=== PATIENT | female | born 1980 | race Two or more races ===

== ENCOUNTER → 2019-11-26 12:44 | Outpatient (BNVA) | payer OTHER, SELFPAY | PROVIDERS: PCP Internal Medicine; Referring Provider Internal Medicine; Visit Provider Surgery | DX: Z48.815 Encounter for surgical aftercare following surgery on the digestive system (principal) | CPT/HCPCS: 99024; 99212 ==

== ENCOUNTER → 2021-05-03 09:18 | Outpatient (BNVA) | payer OTHER, SELFPAY | PROVIDERS: PCP Internal Medicine; Referring Provider Internal Medicine; Visit Provider Physician Assistant | DX: E66.01 Morbid (severe) obesity due to excess calories (principal); Z68.42 Body mass index [BMI] 45.0-49.9, adult; F43.10 Post-traumatic stress disorder, unspecified; F31.9 Bipolar disorder, unspecified; F41.9 Anxiety disorder, unspecified | CPT/HCPCS: 99202 ==

== ENCOUNTER → 2021-05-23 08:34 | Outpatient (BNVA) | payer OTHER, SELFPAY | PROVIDERS: PCP Internal Medicine; Referring Provider Internal Medicine; Visit Provider Physician Assistant | DX: E66.01 Morbid (severe) obesity due to excess calories (principal); Z68.41 Body mass index [BMI] 40.0-44.9, adult; F31.9 Bipolar disorder, unspecified; F17.210 Nicotine dependence, cigarettes, uncomplicated | CPT/HCPCS: 99212 ==

== ENCOUNTER → 2021-06-07 07:59 | Outpatient (BNVA) | payer OTHER, SELFPAY | PROVIDERS: PCP Internal Medicine; Visit Provider Dietitian, Registered | DX: E66.01 Morbid (severe) obesity due to excess calories (principal); Z68.41 Body mass index [BMI] 40.0-44.9, adult | CPT/HCPCS: 97802 ==

== ENCOUNTER → 2021-06-09 08:41 | Outpatient (BNVA) | payer OTHER, SELFPAY | PROVIDERS: PCP Internal Medicine; Visit Provider Counselor Mental Health | DX: F31.13 Bipolar disorder, current episode manic without psychotic features, severe (principal); F43.10 Post-traumatic stress disorder, unspecified; E66.01 Morbid (severe) obesity due to excess calories | CPT/HCPCS: 90791 ==

== ENCOUNTER 2023-04-23 11:31 | Outpatient (REF) | payer OTHER, SELFPAY ==
[2023-04-23 14:24] LABS: MANUAL DIFF FLAG NO
[2023-04-23 14:34] LABS: Basophils Absolute Auto 0.1 X10*3/uL (0.0-0.2); Basophils Percent Auto 0.5 % (0-2); Eosinophils Absolute Auto 0.2 X10*3/uL (0.0-0.4); Eosinophils Percent Auto 1.5 % (0-4); Hemoglobin 13.2 g/dl (12.0-16.0); Imm Gran Abs Auto 0.03 X10*3/uL (0.00-0.03); Imm Gran Pct Auto 0.3 % (0.0-0.4); Lymphocytes Absolute Auto 2.4 X10*3/uL (1.2-4.9); Lymphocytes Percent Auto 22.8 % (20-40); Mean Corpuscular HGB Conc 32.2 g/dl (31.0-35.0); Mean Corpuscular Hemoglobin 28.3 pg (27.0-33.0); Mean Platelet Volume 12.5 fL (9.4-12.3); Monocytes Absolute Auto 0.6 X10*3/uL (0.1-1.2); Monocytes Percent Auto 5.4 % (2-11); Neutrophils Absolute Auto 7.3 x10*3/uL (2.0-8.3); Neutrophils Percent Auto 69.5 % (45-73); Platelet Count 246 X10*3/uL (160-400); Red Blood Count 4.66 X10*6/uL (4.20-5.50); Red Cell Distribution Width 13.8 % (11.0-16.0); White Blood Count 10.5 X10*3/uL (4.8-10.8)
[2023-04-23 15:22] LABS: Alanine Aminotransferase 8 U/L (0-31); Albumin Level 3.9 g/dL (3.5-5.0); Alkaline Phosphatase 71 U/L (39-117); Anion Gap 10 (12-20); Aspartate Amino Transferase 14 U/L (5-31); Bilirubin Total 0.2 mg/dL (0.0-1.0); Blood Urea Nitrogen 9 mg/dL (9-16); Calcium 9.2 mg/dL (8.4-10.2); Carbon Dioxide 27 mmol/L (22-29); Chloride 107 mmol/L (96-108); Estimated Glomerular Filt Rate > 60; Glucose Random 97 mg/dL (60-115); Magnesium 1.9 mg/dL (1.6-2.6); Potassium 3.4 mmol/L (3.3-5.1); Sodium 141 mmol/L (135-145); Total Protein 6.9 g/dL (6.5-8.0)
[2023-04-23 15:40] LABS: TSH reflex Free T4 1.27 uIU/mL (0.32-4.0)
== END 2023-04-23 11:32 | disposition home or self-care (01) ==
LOC: HO.CHCLDS 11:31
PROVIDERS: Visit Provider Internal Medicine
DX: R00.2 Palpitations (principal)
CPT/HCPCS: 36415; 80053; 83735; 84443; 85025

== ENCOUNTER 2024-04-23 15:32 | Outpatient (REF) | payer OTHER, SELFPAY ==
[2024-04-23 17:55] LABS: Appearance Urine Cloudy; Color Urine Yellow; Glucose Urine UA Negative (Negative); Leukocyte Esterase Urine Moderate (2+) (Negative); Nitrite Urine Negative (Negative); UMIC TRIGGER UACC YES; Urine Blood Small (1+) (Negative); Urine Ketones Negative (Negative); Urine Protein Negative (Neg-Trace)
[2024-04-23 17:55] LABS: MANUAL DIFF FLAG NO
[2024-04-23 17:58] LABS: Bacteria Urine 1+ (None Seen); Hyaline Casts Urine 0-2 /LPF (0-2); UACC Culture Trigger YES; WBC Urine 21-50 /HPF (0-5)
[2024-04-23 18:20] LABS: Alanine Aminotransferase 11 U/L (0-31); Alkaline Phosphatase 87 U/L (39-117); Anion Gap 10 (12-20); Aspartate Amino Transferase 24 U/L (5-31); Bilirubin Total 0.3 mg/dL (0.0-1.0); Blood Urea Nitrogen 7 mg/dL (9-16); Calcium 9.1 mg/dL (8.4-10.2); Carbon Dioxide 28 mmol/L (22-29); Chloride 107 mmol/L (96-108); Cholesterol 140 mg/dL (<200); Estimated Glomerular Filt Rate > 60; Glucose Random 81 mg/dL (60-115); HDL Cholesterol 46 mg/dL (>40); LDL Cholesterol Calculated 75 mg/dL (<100); Potassium 3.8 mmol/L (3.3-5.1); Sodium 141 mmol/L (135-145); Total Protein 7.6 g/dL (6.5-8.0); Triglycerides 99 mg/dL (<150)
[2024-04-23 18:30] LABS: Basophils Percent Auto 0.3 % (0-2); Eosinophils Absolute Auto 0.1 X10*3/uL (0.0-0.4); Eosinophils Percent Auto 0.9 % (0-4); Imm Gran Abs Auto 0.04 X10*3/uL (0.00-0.03); Imm Gran Pct Auto 0.4 % (0.0-0.4); Lymphocytes Absolute Auto 1.7 X10*3/uL (1.2-4.9); Lymphocytes Percent Auto 17.8 % (20-40); Mean Corpuscular HGB Conc 31.6 g/dl (31.0-35.0); Mean Corpuscular Hemoglobin 26.9 pg (27.0-33.0); Mean Corpuscular Volume 85.2 fL (80.0-98.0); Mean Platelet Volume 11.8 fL (9.4-12.3); Monocytes Absolute Auto 0.8 X10*3/uL (0.1-1.2); Monocytes Percent Auto 8.2 % (2-11); Neutrophils Absolute Auto 6.8 x10*3/uL (2.0-8.3); Neutrophils Percent Auto 72.4 % (45-73); Platelet Count 299 X10*3/uL (160-400); Red Blood Count 4.46 X10*6/uL (4.20-5.50); Red Cell Distribution Width 14.4 % (11.0-16.0); White Blood Count 9.3 X10*3/uL (4.8-10.8)
[2024-04-23 18:38] LABS: TSH reflex Free T4 0.84 uIU/mL (0.32-4.0)
--- OUTSIDE RECORDS SUMMARY | 2024-04-23 18:47 | XMS_ITS | Encounter Summary ---
Author Organization [employer] Address [address] [place] [address] Care Team Providers Care Cooker Process Cheese Name Role Phone Nash Villarreal MD Primary Care Provider [phone]- [phone] Reason for Visit * Reason Onset Date Comments Med Refill 04/11/2024 Encounter Details Date Type Department Care Team (Late st Contact Info) Description 04/11/2024 Refill [facility] [address] [place] [address] Nash Villarreal MD [address] [place] [address] LRTI (lower respiratory tract infection) Social History Tobacco Use Types Packs/Day Years Used Date Smoking Tobacco: Every Day Cigarettes 0.3 18 Smokeless Tobacco: Never Depression Answer Date Recorded Patient Health Questionnaire-9 Score 6 06/22/2022 Housing Stability Answer Date Recorded What is your housing situation today? I have dhaval taylor 12/25/[address] you li ve. Do you have problems with any of the following? None of the above 12/25/2022 Food Insecurity Answer Date Recorded Within the past 12 months, y ou worried that your food would run out before you got money to buy more: Never True 12/25/2022 Within the past 12 months,th e food you bought just didn't last and you didn't have enough money to get more: Never True 07/2022 Transportation Answer Date Recorded In the past 12 months, has l ack of transportation kept you from medical appts, meetings, work or from getting things needed for daily living? I am not sure;No 12/25/2022 Utilities Answer Date Recorded In the past 12 months, has t he electric, gas, oil or water company threatened to shut off services in your home? No 12/25/2022 Depression Answer Date Recorded Patient Health Questionnaire-2 Score 6 06/22/2022 Comments No Sex and Gender Information Value Date Recorded Sex Assigned at Female 12/19/2021 10:21 AM EDT Legal Sex Female 10:21 AM EDT Gender Identity Non-Binary 07/24/2022 12:55 PM EDT Sexual Orientation Bisexual 07/24/2022 12 :55 PM EDT documented as of this encounter Miscellaneous Notes * Telephone Encounter - Rebeca Galvan - 04/11/2024 9:04 AM EST TC from pt requesting medication refill. Medications needing refill : albuterol 108 (90 Base) MCG/ACT inhaler To be sent to: [facility]/pharmacy #[id number] documented in this encounter Plan of Treatment Not on file documented as of this encounter Visit Diagnoses Diagnosis LRTI (lower respiratory tract infection) Other diseases of respiratory system, not elsewhere classified documented in this encounter Additional Health Concerns Assessment Noted Time PHQ-9 Depression Total Score: 6 06/23/19 23 1:21 PM EDT documented as of this encounter Care Teams Cooker Process Cheese Relationship Specialty Start Date End Date Nash Villarreal MD [address] [place] [phone] PCP - General Internal Medicine 12/26/18 documented as of this encounter
--- OUTSIDE RECORDS SUMMARY | 2024-04-23 18:47 | XMS_ITS | Encounter Summary ---
Author Organization [employer] Address [address] [facility] [address] [place] [address] Care Team Providers Care Engine Research Engineer Name Role Phone Nash Villarreal MD Primary Care Provider [phone]- [phone] Reason for Visit * Reason Comments Annual Exam Encounter Details Date Type Department Care Team (Latest Contact Info) Description 04/23/2024 2:45 PM EST Office Visit [facility] [address] [place], [place] [phone] Nash Villarreal MD [address] [place] [address] Annual physical exam (Primary Dx); Elevated glucose tolerance test; Other schizoaffective disorders (CMS/HCC); Severe obesity (CMS/HCC); Dietary counseling; Exercise counseling; Class 3 severe obesity due to excess calories with serious comorbidity and body mass index (BMI) of 45.0 to 49.9 in adult (CMS/HCC); Elevated BP without diagnosis of hypertension; Dysuria; Encounter for immunization Social History Tobacco Use Types Packs/Day Years Used Date Smoking Tobacco: Former Cigarettes 0.3 18 Smokeless Tobacco: Never Tobacco Cessation:Counseling Given: Not Answered Comments:Quit smoking 2 months. Used to smoke 5 cig a day x the last 15 years. Alcohol Answer Date Recorded Q1: How often do you have a drink containing alc ohol? 2 04/23/2024 Q2: How many drinks containi ng alcohol do you have on a typical day when you are drinking? 0 04/23/2024 Q3: How often do you have six or more drinks on one occasion? 2 04/23/2024 Depression Answer Date Recorded Patient Health Questionnaire-9 Score 5 04/23/2024 Patient Health Questionnaire-9 Score 5 04/23/2024 Last PHQ-9: Questionnaire Data Not on file 0 04/23/2024 Housing Stability Answer Date Recorded What is your housing situation today? I have dhaval taylor 04/23/[address] you li ve. Do you have problems with any of the following? None of the above 04/23/2024 Food Insecurity Answer Date Recorded Within the past 12 months, y ou worried that your food would run out before you got money to buy more: Never True 04/23/2024 Within the past 12 months,th e food you bought just didn't last and you didn't have enough money to get more: Never True 06/2024 Transportation Answer Date Recorded In the past 12 months, has l ack of transportation kept you from medical appts, meetings, work or from getting things needed for daily living? No 04/23/2024 Utilities Answer Date Recorded In the past 12 months, has t he electric, gas, oil or water company threatened to shut off services in your home? No 04/23/2024 Depression Answer Date Recorded Patient Health Questionnaire-2 Score 1 04/23/2024 Internet Access Answer Date Recorded Internet Access Q1 Yes 04/23/2024 Internet Access Q2 Not on file 04/23/2024 Comments No Sex and Gender Information Value Date Recorded Sex Assigned at Female 12/19/2021 10:21 AM EDT Legal Sex Female 10:21 AM EDT Gender Identity Non-Binary 07/24/2022 12:55 PM EDT Sexual Orientation Bisexual 07/24/2022 12 :55 PM EDT documented as of this encounter Last Filed Vital Signs Vital Sign Reading Time Taken Comments Blood Pressure 148/84 04/23/2024 3:00 PM EST Pulse 83 04/23/2024 3:00 PM EST Temperature 36.6 ??C (97.9 ??F) 04/23/2024 3:00 PM ES T Respiratory Rate 20 04/23/2024 3:00 PM EST Oxygen Saturation 98% 04/23/2024 3:00 PM EST Inhaled Oxygen Concentration - - Weight 135 kg (298 lb) 04/23/2024 3:00 PM EST Height 171 cm (5' 7.32 ) 04/23/2024 3:00 PM EST Body Mass Index 46.23 04/23/2024 3:00 PM EST documented in this encounter Progress Notes * Nash Villarreal MD - 04/23/2024 2:45 PM EST Subjective Patient ID: Trinity Ramirez is a 44 y.o. adult who presents for Annual Exam. HPI Was in the psych unit x 21 days. Pt was having visual hallucination. Now feels better. Was skippingher meds before. Feels overall well. Feels happier than she has ever been before. Pt is c/o burning sensation w/ urination today x the last 1 to 2 months. Has been drinking more coffee than usual since her stay at the [facility]. Now drinking up to 32 oz a day. Patient Active Problem List Diagnosis Bipolar disorder (CMS/HCC) Cauda equina compression (CMS/HCC) Elevated glucose tolerance test History of cholecystectomy Schizoaffective disorder (CMS/HCC) Severe obesity (CMS/HCC) Major depressive disorder PTSD (post-traumatic stress disorder) Mixed anxiety and depressive disorder Internal and external hemorrhoids without complication Current Outpatient Medications on File Prior to Visit Medication Sig Dispense Refill albuterol 108 (90 Base) MCG/ACT inhaler Inhale 2 puffs every 6 (six) hours if needed for wheezing. 18 g 1 benztropine (Cogentin) 1 MG tablet Take 1 mg by mouth 2 times daily. clindamycin (Cleocin) 300 MG capsule TAKE ONE CAPSULE EVERY 12 HOURS UNTIL FINISHED docusate sodium (Colace) 100 MG capsule Take 1 capsule (100 mg) by mouth 2 times daily. 180 capsule3 doxycycline (Vibra-Tabs) 100 MG tablet TAKE 1 TABLET (ORAL) 2 TIMES PER DAY FOR 7 DAYS LIMITS ON EXPOSURE WHILE ON THIS ANTIBIOTIC fluticasone (Flonase) 50 MCG/ACT nasal spray INSTILL 1-2 SPRAYS INTO NOSTRILS EVERY DAY IN THE MORNING NEEDED 48 mL 1 gabapentin (Neurontin) 100 MG capsule TAKE 1 CAPSULE BY MOUTH TWICE A DAY 60 capsule 1 hydrocortisone (Anusol-HC) 2.5 % rectal cream Insert into the rectum 2 times daily. 28 g 0 nitroglycerin (Rectiv) 0.4 % (w/w) rectal ointment Insert cream around and within rectum every 12 hours x 7 days 30 g 0 OXcarbazepine (Trileptal) 150 MG tablet OXcarbazepine (Trileptal) 300 MG tablet TAKE 2 TABLETS BY MOUTH EVERY MORNING AND 1&1/2 TABLETSEVERY EVENING DIRECTED oxyCODONE-acetaminophen (Percocet) 10-325 MG tablet TAKE 1 TABLET EVERY 6 TO 8 HOURS NEEDED FOR PAIN predniSONE (Deltasone) 20 MG tablet Take 40 mg by mouth Once per day. risperiDONE (RisperDAL) 1 MG tablet Take 1 tablet by mouth every 12 (twelve) hours. risperiDONE (RisperDAL) 1 MG tablet TAKE 1 TABLET BY MOUTH IN THE MORNING, 1 TABLET IN THE EVENING,AND 1/2 TABLET DAILY AT 3PM risperiDONE (RisperDAL) 3 MG tablet TAKE 1/2 TABLET BY MOUTH TWICE A DAY No current facility-administered medications on file prior to visit. Review of Systems Constitutional: Negative for activity change, appetite change, chills and diaphoresis. HENT: Negative for dental problem, drooling and ear discharge. Eyes: Negative for pain and itching. Respiratory: Negative for cough, choking and chest tightness. Cardiovascular: Negative for palpitations and leg swelling. Gastrointestinal: Negative for abdominal pain, anal bleeding and blood in stool. Endocrine: Negative for cold intolerance and heat intolerance. Genitourinary: Negative for flank pain, frequency and genital sores. Musculoskeletal: Negative for back pain. Neurological: Negative for light-headedness, numbness and headaches. Psychiatric/Behavioral: Negative for agitation, confusion and decreased concentration. Objective BP (!) 148/84 (BP Location: Left arm, Patient Position: Sitting, BP Cuff Size: Adult long) Pulse 83 Temp 97.9 ??F (36.6 ??C) (Oral) Resp 20 Ht 5' 7.32 (1.71 m) Wt 298 lb (135 kg) SpO2 98% BMI 46.23 kg/m?? Physical Exam Constitutional: General: Trinity is not in acute distress. Appearance: Normal appearance. Trinity is not ill-appearing, toxic-appearing or diaphoretic. HENT: Head: Normocephalic. Right Ear: Tympanic membrane normal. There is no impacted cerumen. Left Ear: Tympanic membrane normal. There is no impacted cerumen. Nose: Nose normal. No congestion or rhinorrhea. Mouth/Throat: Mouth: Mucous membranes are moist. Eyes: General: No scleral icterus. Right eye: No discharge. Left eye: No discharge. Pupils: Pupils are equal, round, and reactive to light. Cardiovascular: Rate and Rhythm: Normal rate and regular rhythm. Heart sounds: No murmur heard. No friction rub. No gallop. Pulmonary: Effort: Pulmonary effort is normal. No respiratory distress. Breath sounds: No stridor. No wheezing, rhonchi or rales. Chest: Chest wall: No tenderness. Abdominal: General: There is no distension. Palpations: Abdomen is soft. There is no mass. Tenderness: There is no abdominal tenderness. There is no right CVA tenderness or left CVA tenderness. Musculoskeletal: General: Normal range of motion. Cervical back: Normal range of motion. Neurological: General: No focal deficit present. Mental Status: Trinity is alert and oriented to person, place, and time. Psychiatric: Mood and Affect: Mood normal. Assessment/Plan Diagnoses and all orders for this visit: Annual physical exam Comments: Normal cardiopulmonary exam Patient advised to maintain a healthy and balanced diet Orders: - CBC auto differential; Future - Comprehensive Metabolic Panel; Future - Lipid Panel, Standard; Future - TSH W/Reflex to FT4; Future Elevated glucose tolerance test Comments: Low-carb diet recommended Orders: - CBC auto differential; Future - Comprehensive Metabolic Panel; Future - Lipid Panel, Standard; Future - TSH W/Reflex to FT4; Future Other schizoaffective disorders ([facility]) Comments: Continue with psychiatry care Compliance to medication reinforced. Orders: - CBC auto differential; Future - Comprehensive Metabolic Panel; Future - Lipid Panel, Standard; Future - TSH W/Reflex to FT4; Future Severe obesity ([facility]) Dietary counseling Exercise counseling Class 3 severe obesity due to excess calories with serious comorbidity and body mass index (BMI) of45.0 to 49.9 in adult ([facility]) Dietary Recommendations: Fruits, vegetables, whole grains, protein foods, and fat-free or low-fat dairy products are healthychoices. Eat different types of protein foods in your diet. This can include seafood, lean meats, poultry, beans, peas, lentils, nuts, seeds, soy products, and eggs. Limit foods and beverages higher in added sugars, saturated fat, and sodium. Exercise Recommendations: At least 150 minutes of moderate-intensity physical activity per week, or an equivalent combinationof moderate- and vigorous-intensity activity Elevated BP without diagnosis of hypertension Comments: Patient reports that her BP at home is at goal Feels that she has whitecoat hypertension Dysuria Comments: Urinalysis reviewed. Presence of blood and white blood cells in the urine Advised to increase fluid intake. Macrobid ordered. Orders: - nitrofurantoin, macrocrystal-monohydrate, (Macrobid) 100 MG capsule; Take 1 capsule (100 mg) by mouth 2 times daily for 7 days. - Urinalysis, Complete, with Reflex to Culture; Future - POCT Urinalysis Encounter for immunization - HEPATITIS B VACCINE ADULT 20 yrs + documented in this encounter Plan of Treatment Not on file documented as of this encounter Procedures Procedure Name Priority Date/Time Associated Diagnosis Comments POCT URINALYSIS DIPSTICK Routine 04/23/2024 3:50 PM EST Dysuria CBC WITH AUTO DIFFERENTIAL Routine 04/23/2024 3:33 PM EST Annual physical exam Elevated glucose tolerance test Other schizoaffective disorders (CMS/HCC) URINALYSIS, COMPLETE, WITH REFLEX TO CULTURE Routine 04/23/2024 3:20 PM EST Dysuria TSH W/REFLEX TO FT4 Routine 04/23/2024 2 :47 PM EST Annual physical exam Elevated glucose tolerance test Other schizoaffective disorders (CMS/HCC) LIPID PANEL, STANDARD Routine 04/23/2024 2:47 PM EST Annual physical exam Elevated glucose tolerance test Other schizoaffective disorders (CMS/HCC) COMPREHENSIVE METABOLIC PANEL Routine 04/23/2024 2:47 PM EST Annual physical exam Elevated glucose tolerance test Other schizoaffective disorders (CMS/HCC) documented in this encounter Results * (ABNORMAL) POCT Urinalysis (04/23/2024 3:50 PM EST) Color, UA Yellow Clarity, UA Clear Glucose, UA Negative Bilirubin, UA Negative Ketones, UA Negative Spec Grav, UA 1.015 Blood, UA Positive(A) Negative, None Detected Comment:moderate pH, UA 7.0 Protein, UA Negative Urobilinogen, UA 0.2 Leukocytes, UA Few 15(A) Negative, Rare, Trace Comment:small Nitrite, UA Negative Negative, None Detected Appearance, UA clear QC Media Lot # [id number] Lot# Expiration Date Urine 04/23/2024 3:50 PM EST Nash Villarreal MD POINT OF CARE TEST ENTER/ED IT ORDERABLES Final Result * (ABNORMAL) CBC auto differential (04/23/2024 3:33 PM EST) White Blood Count 9.3 4.8 - 10.8 X10*3/uL [facility] Red Blood Count 4.46 4.20 - 5.50 X10*6/uL [facility] Hemoglobin 12.0 12.0 - 16.0 g/dl [facility] Hematocrit 38.0 37.0 - 47.0 % [facility] Mean Corpuscular Volume 85.2 80.0 - 98.0 fL [facility] Mean Corpuscular Hemoglobin 26.9(L) 27.0 - 33.0 pg [facility] Mean Corpuscular HGB Conc 31.6 31.0 - 35.0 g/dl [facility] Red Cell Distribution Width 14.4 11.0 - 16.0 % [facility] Platelet Count 299 160 - 400 X10*3/uL [facility] Mean Platelet Volume 11.8 9.4 - 12.3 fL [facility] Neutrophils Percent Auto 72.4 45 - 73 % [facility] Imm Gran Pct Auto 0.4 0.0 - 0.4 % [facility] Lymphocytes Percent Auto 17.8(L) 20 - 40 % [facility] Monocytes Percent Auto 8.2 2 - 11 % [facility] Eosinophils Percent Auto 0.9 0 - 4 % [facility] Basophils Percent Auto 0.3 0 - 2 % [facility] NRBC Pct Auto 0.0 0.0 - 0.2 /100WBC [facility] Neutrophils Absolute Auto 6.8 2.0 - 8.3 x10*3/uL [facility] Imm Gran Abs Auto 0.04(H) 0.00 - 0.03 X10*3/uL [facility] Lymphocytes Absolute Auto 1.7 1.2 - 4.9 X10*3/uL [facility] Monocytes Absolute Auto 0.8 0.1 - 1.2 X10*3/uL [facility] Eosinophils Absolute Auto 0.1 0.0 - 0.4 X10*3/uL [facility] Basophils Absolute Auto 0.0 0.0 - 0.2 X10*3/uL [facility] NRBC Abs Auto 0.000 0.0 - 0.012 X10*3/uL [facility] Blood Venous blood specimen / Unknown 04/23/2024 3:33 PM EST 04/23/2024 5:53 PM EST us Nash Villarreal MD LAB BLOOD ORDERABLES Final Result [facility] [address] [place] [phone] * (ABNORMAL) Urinalysis, Complete, with Reflex to Culture (04/23/2024 3:20 PM EST) Color Urine Yellow [facility] Appearance Urine Cloudy [facility] PH 7.0 5.0 - 9.0 [facility] Glucose Urine UA Negative Negative mg/dL [facility] Urine Blood Small (1+)(A) Negative [facility] Specific [place] - Urine 1.010 1.005 - 1.025 [facility] Urine Protein Negative Neg-Trace mg/dL [facility] Urine Ketones Negative Negative mg/dL [facility] Nitrite Urine Negative Negative [facility] Leukocyte Esterase Urine Moderate (2+)(A) Negative [facility] RBC Urine 11-20(A) 0 - 2 /HPF [facility] Urine WBC 21-50(A) 0 - 5 /HPF [facility] Urine Squamous Epithelial Cell 11-20 0 - 2 /HPF [facility] Urine Bacteria 1+ None Seen [facility] Hyaline Casts, Urine 0-2 0 - 2 /LPF [facility] Urine 04/23/2024 3:2 0 PM EST 04/23/2024 5:49 PM EST Narrative [facility] - 04/23/2024 5:59 PM EST [id number], Clean Catch us Nash Villarreal MD LAB URINE ORDERABLES Final Result Performing Organization Address City/[facility]/ZIP Co de Phone Number [facility] [address] [place] [phone] * TSH W/Reflex to FT4 (04/23/2024 2:47 PM EST) TSH reflex Free T4 0.84 0.32 - 4.0 uIU/mL [facility] Blood Venous blood specimen / Unknown 04/23/2024 2:47 PM EST 04/23/2024 5:53 PM EST us Nash Villarreal MD LAB BLOOD ORDERABLES Final Result Performing Organization Address City/[facility]/ZIP Co de Phone Number [facility] [address] [place] [phone] * Lipid Panel, Standard (04/23/2024 2:47 PM EST) Triglycerides 99 <150 mg/dL [facility] Comment:Desirable Triglyceri de: less than 150 mg/dLBorderline High Triglyceride 150-199 mg/dLHigh Triglyceride: 200-499 mg/dLVery High Triglyceride: greater than or equal to 5OO mg/dL Cholesterol 140 <200 mg/dL [facility] Comment:Desirable Cholestero l: less than 200 mg/dLBorderline High Cholesterol: 200-239 mg/dLHigh Cholesterol: greater than 239 mg/dL LDL Cholesterol Calculated 75 <100 mg/dL [facility] Comment:Desirable LDL: less than 100 mg/dLNear Optimal/Above Optimal LDL: 110- 129 mg/dLBorderline High LDL: 130-159 mg/dLHigh LDL: 160-189 mg/dLVery High LDL: greater than or equal to 190 mg/dL HDL Cholesterol 46 >40 mg/dL [facility] Comment:Desirable HDL: great er than 40 mg/dL Note: This HDL assay may give artificially low results in patients with liver disease. Blood Venous blood specimen / Unknown 04/23/2024 2:47 PM EST 04/23/2024 5:53 PM EST us Nash Villarreal MD LAB BLOOD ORDERABLES Final Result [facility] [address] [place] [phone] * (ABNORMAL) Comprehensive Metabolic Panel (04/23/2024 2:47 PM EST) Sodium 141 135 - 145 mmol/L [facility] Potassium 3.8 3.3 - 5.1 mmol/L [facility] Chloride 107 96 - 108 mmol/L [facility] Carbon Dioxide 28 22 - 29 mmol/L [facility] Anion Gap 10(L) 12 - 20 [facility] Urea Nitrogen (BUN) 7(L) 9 - 16 mg/dL [facility] Creatinine, Serum 0.70 0.5 - 1.4 mg/dL [facility] Estimated Glomerular Filt Rate >60 [facility] Comment:Chronic Kidney Disea se: Estimated GFR < 60 mL/min/1.51b2[place] Kidney Disease: Estimated GFR < 15 mL/min/1.73m2 Glucose 81 60 - 115 mg/dL [facility] Calcium 9.1 8.4 - 10.2 mg/dL [facility] Bilirubin, Total 0.3 0.0 - 1.0 mg/dL [facility] Aspartate Amino Transferase 24 5 - 31 U/L [facility] Alanine Aminotransferase 11 0 - 31 U/L [facility] Total Protein 7.6 6.5 - 8.0 g/dL [facility] Albumin Level 4.0 3.5 - 5.0 g/dL [facility] Alkaline Phosphatase 87 39 - 117 U/L [facility] Blood Venous blood specimen / Unknown 04/23/2024 2:47 PM EST 04/23/2024 5:53 PM EST us Nash Villarreal MD LAB BLOOD ORDERABLES Final Result [facility] [address] [place] [phone] documented in this encounter Visit Diagnoses Diagnosis Annual physical exam- Primary Routine general medical examination at a health care facility Elevated glucose tolerance test Impaired glucose tolerance test Other schizoaffective disorders (CMS/HCC) Severe obesity ([facility]) Morbid obesity Dietary counseling Dietary surveillance and counseling Exercise counseling Class 3 severe obesity due to excess calories with serious comorbidity and body mass index (BMI) of 45.0 to 49.9 in adult (CMS/HCC) Elevated BP without diagnosis of hypertension Dysuria Encounter for immunization documented in this encounter Additional Health Concerns Assessment Noted Time PHQ-9 Depression Total Score: 5 04/24/19 25 3:29 PM EST documented as of this encounter Care Teams Engine Research Engineer Relationship Specialty Start Date End Date Nash Villarreal MD [address] [place] [phone] PCP - General Internal Medicine 12/26/18 documented as of this encounter
--- OUTSIDE RECORDS SUMMARY | 2024-04-23 18:47 | XMS_ITS | Encounter Summary ---
Author Organization [employer] Address [address] [facility] 7t [place] [address] Care Team Providers Care Embedded Systems Engineer Name Role Phone Nash Villarreal MD Primary Care Provider [phone]- [phone] Reason for Visit * Reason Onset Date Comments Mammogram Order 12/13/2023 Encounter Details Date Type Department Care Team ([facility] st Contact Info) Description 12/13/2023 Telephone [facility] [address] [place] [address] Nash Villarreal MD [address] [place], [place] [phone] Mammogram Order Social History Tobacco Use Types Packs/Day Years [...] encounter Miscellaneous Notes * Telephone Encounter - Nguyễn Flores - 12/13/2023 10:50 AM EDT Tc from pt requesting mammogram order. Pt stated she was supposed to have one last year but wasn't charles to get it done. If any questions you can contact pt at [phone]. documented in this encounter Plan of Treatment Not on file documented as of this encounter Visit Diagnoses Not on filedocumented in this encounter Additional Health Concerns Assessment Noted Time PHQ-9 Depression Total Score: 6 06/23/19 23 1:21 PM EDT documented as of this encounter Care Teams Embedded Systems Engineer Relationship Specialty Start Date End Date Nash Villarreal MD [address] [place] [address] PCP - General Internal Medicine 12/26/18 documented as of this encounter
--- OUTSIDE RECORDS SUMMARY | 2024-04-23 18:47 | XMS_ITS | Encounter Summary ---
Author Organization [employer] Address [address] [facility] 7t [place] [address] Care Team Providers Care Exec. Creative Director Name Role Phone Nash Villarreal MD Primary Care Provider [phone]- [phone] Reason for Visit * Reason Comments Pre-visit Planning SDOH unable to reach LVM Encounter Details Date Type Department Care Team ([facility] st Contact Info) Description 04/16/2024 Patient Outreach [facility] PEDS [address] [place], [place] [phone] Nash Villarreal MD [address] [place] [address] Pre-visit Planning (SDOH unable to reach LVM) Social History Tobacco Use Types Packs/Day Years [...] PM EDT documented as of this encounter Progress Notes * Tasia Mora - 04/16/2024 4:51 PM EST HANK Garcia placed outbound call to patient to complete pre-visit planning. No answer at this time. Patient name and were not confirmed. CC left voicemail requesting return call. Direct contactinformation provided. documented in this encounter Plan of Treatment Not on file documented as of this encounter Visit Diagnoses Not on filedocumented in this encounter Additional Health Concerns Assessment Noted Time PHQ-9 Depression Total Score: 6 06/23/19 23 1:21 PM EDT documented as of this encounter Care Teams Exec. Creative Director Relationship Specialty Start Date End Date Nash Villarreal MD [address] [place] [id number] PCP - General Internal Medicine 12/26/18 documented as of this encounter
--- OUTSIDE RECORDS SUMMARY | 2024-04-23 18:47 | XMS_ITS | Encounter Summary ---
Author Organization [employer] Address [address] [facility] [address] [place] [address] Care Team Providers Care Typing Bookkeeper Name Role Phone Nash Villarreal MD Primary Care Provider [phone] [phone] Encounter Details Date Type Department Care Team (Latest Contact Info) Description 04/23/2024 Travel Social History Tobacco Use Types Packs/Day Years Used Date Smoking Tobacco: Former Cigarettes 0.3 18 Smokeless Tobacco: Never Comments:Quit smoking 2 travis hs. Used to smoke 5 cig a day [...] PM EDT documented as of this encounter Plan of Treatment Not on file documented as of this encounter Visit Diagnoses Not on filedocumented in this encounter Additional Health Concerns Assessment Noted Time PHQ-9 Depression Total Score: 5 04/24/19 25 3:29 PM EST documented as of this encounter Care Teams Typing Bookkeeper Relationship Specialty Start Date End Date Nash Villarreal MD [address] [place] [address] PCP - General Internal Medicine 12/26/18 documented as of this encounter
--- OUTSIDE RECORDS SUMMARY | 2024-04-23 18:47 | XMS_ITS | Encounter Summary ---
Author Organization [employer] Address [address] [facility] [address] [place] [address] Care Team Providers Care Wedding Planning Internship Name Role Phone Nash Villarreal MD Primary Care Provider [phone]- [phone] Reason for Visit * Reason Onset Date Comments Appointment Request 03/21/2023 Encounter Details Date Type Department Care Team ([facility] st Contact Info) Description 03/21/[address] [facility] [address] [place] [address] Nash Villarreal MD [address] [place] [address] Appointment Request Social History Tobacco Use Types Packs/Day Years [...] encounter Miscellaneous Notes * Telephone Encounter - Linda March RN - 03/21/2023 11:50 AM EST Please review message below and advise if order for EKG can be placed as psych is requesting. * Telephone Encounter - Wei Smith - 03/21/2023 11:43 AM EST Tc from patient requesting a appt to get a EKG exam states was advised by phychiatric to get exam done due to the medication the patient is taking. documented in this encounter Plan of Treatment Not on file documented as of this encounter Visit Diagnoses Not on filedocumented in this encounter Additional Health Concerns Assessment Noted Time PHQ-9 Depression Total Score: 6 06/23/19 23 1:21 PM EDT documented as of this encounter Care Teams Wedding Planning Internship Relationship Specialty Start Date End Date Nash Villarreal MD [address] [place] [address] PCP - General Internal Medicine 12/26/18 documented as of this encounter
--- OUTSIDE RECORDS SUMMARY | 2024-04-23 18:47 | XMS_ITS | Encounter Summary ---
Author Organization [employer] Address [address] [facility] 7t [place] [address] Care Team Providers Care Riding Teacher Name Role Phone Nash Villarreal MD Primary Care Provider [phone] [phone] Encounter Details Date Type Department Care Team ([facility] st Contact Info) Description 02/01/2024 Orders Only [facility] PEDS [address] [place], [place] [phone] Nash Villarreal MD [address] [place] [address] Acute left flank pain (Primary Dx) Social History Tobacco Use Types Packs/Day Years [...] as of this encounter Plan of Treatment Scheduled Orders Name Type Priority Associated Diagnoses Orde r Schedule Urinalysis, Complete, with Reflex to Culture Lab Routine Acute left flank pain Expected: 02/01/2024 (Approximate), Expires: 01/31/2025 documented as of this encounter Visit Diagnoses Diagnosis Acute left flank pain- Primary documented in this encounter Additional Health Concerns Assessment Noted Time PHQ-9 Depression Total Score: 6 06/23/19 23 1:21 PM EDT documented as of this encounter Care Teams Riding Teacher Relationship Specialty Start Date End Date Nash Villarreal MD [address] [place] [id number] PCP - General Internal Medicine 12/26/18 documented as of this encounter
--- OUTSIDE RECORDS SUMMARY | 2024-04-23 18:47 | XMS_ITS | Encounter Summary ---
Author Organization [employer] Address [address] [facility] [address] [place] [address] Care Team Providers Care Parasitologist Name Role Phone Nash Villarreal MD Primary Care Provider [phone]- [phone] Reason for Referral * Imaging (Routine) - Closed Specialty Diagnoses / Procedures Referred By Ria murphy Referred To Contact Radiology Diagnoses Encounter for screening mammogram for malignant neoplasm of breast Procedures BI Mammogram Screening Tomosynthesis Bilateral Nash Villarreal MD [address] [place] [address] Phone: tel: fax: [address] Phone: tel: fax: Referral ID Status Reason Start Date Expiration Date Visits Re quested Visits Authorized [id number] Closed 12/13/2023 12/12/2024 1 1 Encounter Details Date Type Department Care Team (Late st Contact Info) Description 12/13/2023 Orders Only [facility] CH[facility] MED & PEDS [address] [place] [address] Nash Villarreal MD [address] [place] [address] Encounter for screening mammogram for malignant neoplasm of breast (Primary Dx) Social History Tobacco Use Types [...] Procedure Name Priority Date/Time Associated Diagnosis Comments BI MAMMOGRAM SCREENING TOMOSYNTHESIS BILATERAL Routine 01/24/2024 Encounter for screening mammogram for malignant neoplasm of breast documented in this encounter Results * BI Mammogram Screening Tomosynthesis Bilateral (01/24/2024) Anatomical Region Laterality Modality Breast Bilateral Mammography us Nash Villarreal MD IMG BI PROCEDURES Final Res ult documented in this encounter Visit Diagnoses Diagnosis Encounter for screening mammogram for malignant neoplasm of breast- Primary documented in this encounter Additional Health Concerns Assessment Noted Time PHQ-9 Depression Total Score: 6 06/23/19 23 1:21 PM EDT documented as of this encounter Care Teams Parasitologist Relationship Specialty Start Date End Date Nash Villarreal MD [address] [place] [address] PCP - General Internal Medicine 12/26/18 documented as of this encounter
--- OUTSIDE RECORDS SUMMARY | 2024-04-23 18:47 | XMS_ITS | Clinical Summary ---
Author Organization [employer] Address [address] [facility] [address] [place] [address] Care Team Providers Care Hot Shot Name Role Phone Nash Villarreal MD Primary Care Provider [phone] Allergies Active Allergy Reactions Criticality Noted Date Comments Cat Dander 08/29/2022 Tiller Extract High 09/22/2011 Other reaction(s): rash, hives Tramadol 05/08/2022 Medications * This document contains information received from the source organization and may not represent a complete record from that organization. gabapentin (Neurontin) 100 MG capsule TAKE 1 CAPSULE BY MOUTH TWICE A DAY 60 capsule 1 06/03/19 23 Active benztropine (Cogentin) 1 MG tablet Take 1 mg by mouth 2 times daily. 10/17/19 22 Active risperiDONE (RisperDAL) 1 MG tablet Take 1 tablet by mouth every 12 (twelve) hours. 11/02/19 22 Active risperiDONE (RisperDAL) 1 MG tablet TAKE 1 TABLET BY MOUTH IN THE MORNING, 1 TABLET IN THE EVENING, AND 1/2 TABLET DAILY AT 3PM 04/29/19 23 Active OXcarbazepine (Trileptal) 150 MG tablet 07/31/19 23 Active fluticasone (Flonase) 50 MCG/ACT nasal sprayIndicatio ns:Post-nasal drip INSTILL 1-2 SPRAYS INTO NOSTRILS EVERY DAY IN THE MORNING NEEDED 48 mL 1 09/15/19 23 Active clindamycin (Cleocin) 300 MG capsule TAKE ONE CAPSULE EVERY 12 HOURS UNTIL FINISHED 05/14/19 24 Active doxycycline (Vibra-Tabs) 100 MG tablet TAKE 1 TABLET (ORAL) 2 TIMES PER DAY FOR 7 DAYS LIMITS ON EXPOSURE WHILE ON THIS ANTIBIOTIC 01/30/20 23 Active oxyCODONE-acet aminophen (Percocet) 10-325 MG tablet TAKE 1 TABLET EVERY 6 TO 8 HOURS NEEDED FOR PAIN 05/14/19 24 Active predniSONE (Deltasone) 20 MG tablet Take 40 mg by mouth Once per day. 01/30/20 23 Active OXcarbazepine (Trileptal) 300 MG tablet TAKE 2 TABLETS BY MOUTH EVERY MORNING AND 1&1/2 TABLETS EVERY EVENING DIRECTED 04/25/19 24 Active risperiDONE (RisperDAL) 3 MG tablet TAKE 1/2 TABLET BY MOUTH TWICE A DAY 04/25/19 24 Active nitroglycerin (Rectiv) 0.4 % (w/w) rectal ointment Insert cream around and within rectum every 12 hours x 7 days 30 g 11/02/19 24 Active docusate sodium (Colace) 100 MG capsule Take 1 capsule (100 mg) by mouth 2 times daily. 180 capsule 3 11/02/19 24 Active hydrocortisone (Anusol-HC) 2.5 % rectal creamIndicatio ns:External hemorrhoids Insert into the rectum 2 times daily. 28 g 11/27/19 24 Active albuterol 108 (90 Base) MCG/ACT inhalerIndicat ions:LRTI (lower respiratory tract infection) Inhale 2 puffs every 6 (six) hours if needed for wheezing. 18 g 1 04/11/19 25 025 Active nitrofurantoin , macrocrystal-m onohydrate, (Macrobid) 100 MG capsuleIndicat ions:Dysuria Take 1 capsule (100 mg) by mouth 2 times daily for 7 days. 14 capsule 04/24/19 25 025 Active albuterol 108 (90 Base) MCG/ACT inhalerIndicat ions:LRTI (lower respiratory tract infection) Inhale 2 puffs every 6 (six) hours if needed for wheezing. 18 g 1 05/09/19 23 025 Discontinued(Re order (will not trigger notification to Pharmacy)) bisacodyl (Dulcolax) 5 MG EC tabletIndicati ons:External hemorrhoids Take 1 tablet (5 mg) by mouth if needed each day for constipation. Do not crush, chew, or split. 30 tablet 3 11/27/19 24 025 Active Problems Problem Noted Date Diagnosed Date Internal and external hemorrhoids without compli cation 11/04/2023 Assessment & Plan (11/04/2023 4:03 PM EDT): Continue soaks, use of squatty potty and drinking lots of water. Use Nifedipine at 6 oclock for potential fissure, Prep H around rectum, wipe with witch Marlena pads, and use internal Anusol (hydrocortisone suppositories). If not improved in 1-2 weeks, return to clinic, return for any fever, increased pain, or large quantity bleeding. PTSD (post-traumatic stress disorder) 11/01/2023 Mixed anxiety and depressive disorder 11/01/2023 Major depressive disorder 08/08/2022 Cauda equina compression 06/22/2022 Elevated glucose tolerance test 06/22/2022 History of cholecystectomy 06/22/2022 Schizoaffective disorder 06/22/2022 Severe obesity 06/22/2022 Bipolar disorder 09/21/2009 Resolved Problems Problem Noted Date Diagnosed Date Resolved Date Crohn's disease 08/08/2022 11/02/2023 Gestational diabetes mellitu s in , diet controlled 08/08/2022 08/08/2022 Encounters * This document contains information received from the source organization and may not represent a complete record from that organization. Date Type Department Care Team Description 04/23/2024 2:45 PM EST Office Visit [facility] [address] [place] [address] Nash Villarreal MD Annual physical exam (Primary Dx); Elevated glucose tolerance test; Other schizoaffective disorders (CMS/HCC); Severe obesity (CMS/HCC); Dietary counseling; Exercise counseling; Class 3 severe obesity due to excess calories with serious comorbidity and body mass index (BMI) of 45.0 to 49.9 in adult (CMS/HCC); Elevated BP without diagnosis of hypertension; Dysuria; Encounter for immunization 04/23/2024 Travel 04/16/2024 Patient Outreach [facility] [address] [place] [address] Nash Villarreal MD Pre-visit Planning ([facility] unable to reach LVM) 04/11/2024 Refill [facility] [address] [place] [address] Nash Villarreal MD LRTI (lower respiratory tract infection) 02/01/2024 Orders Only [facility] [address] [place] [address] Nash Villarreal MD Acute left flank pain (Primary Dx) 01/28/2024 Telephone [facility] [address] [place], [place] [phone] Flor Thomson MD ER Follow-up (ED fu abd pain/pyelonephritis? ) from Last 3 Months Immunizations Name Administration Dates Next Due Hep B, adult 04/23/2024,04/10/2019,03/13/2019 Influenza Injectable Quadriv alant Preservative Free IIV4 MDCK 11/22/2017,11/06/2016 Influenza injectable quadriv alent IIV4 with preservative 04/10/2019,01/04/2015 Influenza injectable quadriv alent preservative free 12/30/2015 Influenza, High Dose Seasona l, Preservative Free 11/06/2016 Pneumococcal Polysaccharide PPSV23 04/26/2007 TD (adult), 2 Lf tetanus tox oid, preservative free, adsorbed 04/26/2007,05/29/2006 Tdap 02/25/2018 Family History Medical History Relation Name Comments Breast cancer Father's Sister Breast cancer Maternal Cousin diagnosed a t 19, still living Cervical cancer Mother Breast cancer Mother's Sister No Known Problems Paternal Grandmother Relation Name Status Comments Father's Sister Maternal Cousin Other Mother Mother's Sister Paternal Grandmother Social History Tobacco Use Types Packs/Day Years [...] Orientation Bisexual 07/24/2022 12 :55 PM EDT Last Filed Vital Signs Vital Sign Reading [...] Mass Index 46.23 04/23/2024 3:00 PM EST Plan of Treatment Health Maintenance Due Date Last Done Comments HIV Screening 1982 Family Planning (PISQ) 1997 Hepatitis C Screening 2000 Hepatitis A Vaccines (1 of 2 - Risk 2-dose series) 2001 COVID-19 Vaccine (2 - season) 2023 07/22/2020 Influenza Vaccine (#1) 2024 , 11/22/2017, 11/06/2016, Additional history exists Postponed from 10/21/2023 (Patient Refused) Alcohol/Substance Use Screening 04/23/2025 04/23/2024 Depression Screening 04/23/2025 04/23/2024, 04/24/19 SDOH Screening 04/23/2025 04/23/2024 Tobacco Screening 04/23/2025 04/23/2024 Mammogram 01/23/2026 01/24/2024, 01/24/2024 Cervical Cancer Screening 07/26/2027 HPV/Cotest 07/26/2027 07/25/2022 Pap Smear 07/26/2027 07/25/2022 Lipid Panel 08/17/2027 04/23/2024, 08/16/2022 DTaP/Tdap/Td Vaccines (2 - Td or Tdap) 02/26/2028 02/25/2018, 04/26/2007, 05/29/2006 Zoster Vaccines (1 of 2) 2032 RSV Patients and Patients Aged 60 years or older (1 - 1-dose 75+ series) 2057 Pneumococcal Vaccine: Pediatrics (0 to 5 Years) and At-Risk Patients (6 to 49) Years) Aged Out 04/26/2007 No longer eligible based on patient's age to complete this topic Hepatitis B Vaccines Completed 04/23/2024, 04/10/2019, 03/13/2019 HIB Vaccines Aged Out No longer eligi ble based on patient's age to complete this topic HPV Vaccines Aged Out No longer eligi ble based on patient's age to complete this topic IPV Vaccines Aged Out No longer eligi ble based on patient's age to complete this topic Meningococcal Vaccine Aged Out No ildia julián eligible based on patient's age to complete this topic RSV under 20 months Aged Out No longe r eligible based on patient's age to complete this topic Rotavirus Vaccines Aged Out No longer eligible based on patient's age to complete this topic Procedures Procedure Name Priority Date/Time Associated Diagnosis [...] glucose tolerance test Other schizoaffective disorders (CMS/HCC) BI MAMMOGRAM SCREENING TOMOSYNTHESIS BILATERAL Routine 01/24/2024 Encounter for screening mammogram for malignant neoplasm of breast IMAGE-GUIDED PAP W/AGE BASED SCR PROTOCOLS Routine 07/25/2022 10:32 AM EDT Cervical cancer screening from Last 3 Months or Most Recently Relevant to Health Maintenance Results * (ABNORMAL) POCT Urinalysis (04/23/2024 3:50 [...] Blood Count 9.3 4.8 - 10.8 X10*3/uL [facility] Red Blood Count 4.46 4.20 - 5.50 X10*6/uL [facility] Hemoglobin 12.0 12.0 - 16.0 g/dl [facility] Hematocrit 38.0 37.0 - 47.0 % [facility] Mean Corpuscular Volume 85.2 80.0 - 98.0 fL [facility] Mean Corpuscular Hemoglobin 26.9(L) 27.0 - 33.0 pg [facility] Mean Corpuscular HGB Conc 31.6 31.0 - 35.0 g/dl [facility] Red Cell Distribution Width 14.4 11.0 - 16.0 % [facility] Platelet Count 299 160 - 400 X10*3/uL [facility] Mean Platelet Volume 11.8 9.4 - 12.3 fL [facility] Neutrophils Percent Auto 72.4 45 - 73 % [facility] Imm Gran Pct Auto 0.4 0.0 - 0.4 % [facility] Lymphocytes Percent Auto 17.8(L) 20 - 40 % [facility] Monocytes Percent Auto 8.2 2 - 11 % [facility] Eosinophils Percent Auto 0.9 0 - 4 % [facility] Basophils Percent Auto 0.3 0 - 2 % [facility] NRBC Pct Auto 0.0 0.0 - 0.2 /100WBC [facility] Neutrophils Absolute Auto 6.8 2.0 - 8.3 x10*3/uL [facility] Imm Gran Abs Auto 0.04(H) 0.00 - 0.03 X10*3/uL [facility] Lymphocytes Absolute Auto 1.7 1.2 - 4.9 X10*3/uL [facility] Monocytes Absolute Auto 0.8 0.1 - 1.2 X10*3/uL [facility] Eosinophils Absolute Auto 0.1 0.0 - 0.4 X10*3/uL [facility] Basophils Absolute Auto 0.0 0.0 - 0.2 X10*3/uL [facility] NRBC Abs Auto 0.000 0.0 - 0.012 X10*3/uL [facility] Blood Venous blood specimen / Unknown 04/23/2024 3:33 PM EST 04/23/2024 5:53 PM EST us Nash Villarreal MD LAB BLOOD ORDERABLES Final Result [facility] [address] [place] [phone] * (ABNORMAL) Urinalysis, Complete, with Reflex to Culture (04/23/2024 3:20 PM EST) Color Urine Yellow [facility] Appearance Urine Cloudy [facility] PH 7.0 5.0 - 9.0 [facility] Glucose Urine UA Negative Negative mg/dL [facility] Urine Blood Small (1+)(A) Negative [facility] Specific [place] - Urine 1.010 1.005 - 1.025 [facility] Urine Protein Negative Neg-Trace mg/dL [facility] Urine Ketones Negative Negative mg/dL [facility] Nitrite Urine Negative Negative [facility] Leukocyte Esterase Urine Moderate (2+)(A) Negative [facility] RBC Urine 11-20(A) 0 - 2 /HPF [facility] Urine WBC 21-50(A) 0 - 5 /HPF [facility] Urine Squamous Epithelial Cell 11-20 0 - 2 /HPF [facility] Urine Bacteria 1+ None Seen [facility] Hyaline Casts, Urine 0-2 0 - 2 /LPF [facility] Urine 04/23/2024 3:20 PM EST 04/23/2024 5:49 PM EST Narrative [facility] - 04/23/2024 5:59 PM EST [id number], Clean Catch us Nash Villarreal MD LAB URINE ORDERABLES Final Result Performing Organization Address [facility] Co de Phone Number [facility] [address] [place] [phone] * TSH W/Reflex to FT4 (04/23/2024 2:47 PM EST) TSH reflex Free T4 0.84 0.32 - 4.0 uIU/mL [facility] Blood Venous blood specimen / Unknown 04/23/2024 2:47 PM EST 04/23/2024 5:53 PM EST us Nash Villarreal MD LAB BLOOD ORDERABLES Final Result Performing Organization Address City/[facility] Co de Phone Number [facility] [address] [place] [phone] * Lipid Panel, Standard (04/23/2024 2:47 PM EST) Triglycerides 99 <150 mg/dL [facility] Comment:Desirable Triglyceri de: less than 150 mg/dLBorderline High Triglyceride 150-199 mg/dLHigh Triglyceride: 200-499 mg/dLVery High Triglyceride: greater than or equal to 5OO mg/dL Cholesterol 140 <200 mg/dL [facility] Comment:Desirable Cholestero l: less than 200 mg/dLBorderline High Cholesterol: 200-239 mg/dLHigh Cholesterol: greater than 239 mg/dL LDL Cholesterol Calculated 75 <100 mg/dL [facility] Comment:Desirable LDL: less than 100 mg/dLNear Optimal/Above Optimal LDL: 110- 129 mg/dLBorderline High LDL: 130-159 mg/dLHigh LDL: 160-189 mg/dLVery High LDL: greater than or equal to 190 mg/dL HDL Cholesterol 46 >40 mg/dL [facility] Comment:Desirable HDL: great er than 40 mg/dL Note: This HDL assay may give artificially low results in patients with liver disease. Blood Venous blood specimen / Unknown 04/23/2024 2:47 PM EST 04/23/2024 5:53 PM EST us Nash Villarreal MD LAB BLOOD ORDERABLES Final Result [facility] [address] [place] [phone] * (ABNORMAL) Comprehensive Metabolic Panel (04/23/2024 2:47 PM EST) Sodium 141 135 - 145 mmol/L [facility] Potassium 3.8 3.3 - 5.1 mmol/L [facility] Chloride 107 96 - 108 mmol/L [facility] Carbon Dioxide 28 22 - 29 mmol/L [facility] Anion Gap 10(L) 12 - 20 [facility] Urea Nitrogen (BUN) 7(L) 9 - 16 mg/dL [facility] Creatinine, Serum 0.70 0.5 - 1.4 mg/dL [facility] Estimated Glomerular Filt Rate >60 [facility] Comment:Chronic Kidney Disea se: Estimated GFR < 60 mL/min/1.81w3Rzenrd Kidney Disease: Estimated GFR < 15 mL/min/1.73m2 Glucose 81 60 - 115 mg/dL [facility] Calcium 9.1 8.4 - 10.2 mg/dL [facility] Bilirubin, Total 0.3 0.0 - 1.0 mg/dL [facility] Aspartate Amino Transferase 24 5 - 31 U/L [facility] Alanine Aminotransferase 11 0 - 31 U/L [facility] Total Protein 7.6 6.5 - 8.0 g/dL [facility] Albumin Level 4.0 3.5 - 5.0 g/dL [facility] Alkaline Phosphatase 87 39 - 117 U/L [facility] Blood Venous blood specimen / Unknown 04/23/2024 2:47 PM EST 04/23/2024 5:53 PM EST us Nash Villarreal MD LAB BLOOD ORDERABLES Final Result [facility] [address] [place] [address] [phone] * BI Mammogram Screening Tomosynthesis Bilateral (01/24/2024) Anatomical Region Laterality Modality Breast Bilateral Mammography us Nash Villarreal MD IMG BI PROCEDURES Final Res ult * Image-Guided Pap with Age-Based Screening Protocols (07/25/2022 10:32 AM EDT) Comment [employer] Comment: This order for age-based cervical cancer and STI screening follows ACOG guidelines(PB 168, 140, YCP775). See individual assays for performing site location. Clinical Information: None given [facility] LMP: NONE GIVEN [facility] Prev. PAP: NONE GIVEN [facility] Prev. BX: NONE GIVEN [facility] SOURCE: None given [facility] Statement Of Adequacy: [facility] Comment: Satisfactory for evaluation. Endocervical/transformation zone component absent. Interpretation/ Result: Negative for intraepithelial lesion or malignancy. [employer] COMMENT: This Pap test has been evaluated with computer assisted technology. [employer] Cytotechnologis t: [facility] Comment: MPG, CT(ASCP) CT screening location: [address] ??[phone] (Always Message) [employer] Comment: EXPLANATORY NOTE: The Pap is a screening test for cervical cancer. It is not a diagnostic test and is subject to false negative and false positive results. It is most reliable when a satisfactory sample, regularly obtained, is submitted with relevant clinical findings and history, and when the Pap result is evaluated along with historic and current clinical information. HPV nRNA E6/E7 Not Detected Not Detected [facility] Comment: Methodology: Two Way [employer]er-Mediated Amplification This assay detects E6/E7 viral messenger RNA (mRNA) from 14 high-risk HPV types (16,18,31,33,35,39,45,51,52,56,58,59,66,68). Cervical sources are required for HPV testing. If a vaginal source from a patient who has had a total hysterectomy with removal of cervix was submitted, please contact the testing laboratory for alternative testing options. For additional information, please refer to http://education.Onarbor/faq/SVG644z2 (This link if provided for information/ educational purposes only.) Pap Vial 07/25/2022 10:3 2 AM EDT 07/26/2022 9:57 AM EDT Janene Velasco [facility] LAB BLOOD ORDERABLES Michelle l Result [facility] [address], [place] [address] Revl [email or web address] [address] [place] [phone] from Last 3 Months or Most Recently Relevant to Health Maintenance [place] [address] [place] [address] - [employer] Care Teams Hot Shot Relationship Specialty Start Date End Date Nash Villarreal MD [address] [place] [phone] PCP - General Internal Medicine 12/26/18
--- OUTSIDE RECORDS SUMMARY | 2024-04-23 18:47 | XMS_ITS | Encounter Summary ---
Author Organization [employer] Address [address] [facility] [address] [place] [address] Care Team Providers Care Eye Dropper Assembler Name Role Phone Nash Villarreal MD Primary Care Provider [phone] Encounter Details Date Type Department Care Team (Latest Contact Info) Description 07/13/2020 Abstract [facility] CONVERSIONS Dental, Provider, DDS Social History Tobacco Use Types Packs/Day Years Used Date Smoking Tobacco: Never Assessed Comments Unknown Sex and Gender Information Value Date Recorded Sex Assigned at Female 12/19/2021 10:21 AM EDT Legal Sex Female 10:21 AM EDT Gender Identity Non-Binary 07/24/2022 12:55 PM EDT Sexual Orientation Bisexual 07/24/2022 12 :55 PM EDT documented as of this encounter Plan of Treatment Not on file documented as of this encounter Visit Diagnoses Not on filedocumented in this encounter Care Teams Eye Dropper Assembler Relationship Specialty Start Date End Date Nash Villarreal MD [address] [place] [phone] PCP - General Internal Medicine 12/26/18 documented as of this encounter
--- OUTSIDE RECORDS SUMMARY | 2024-04-23 18:47 | XMS_ITS | Clinical Summary ---
Author Organization [facility] Address [address] [place] [address] Phone Care Team Providers Care Electrical Foreman Name Role Phone Nash Villarreal MD Primary Care Provider [phone] Allergies No known active allergies Encounters Date Type Department Care Team Description 01/25/2024 8:06 AM EST - 01/25/2024 11:[address] [facility] [address] [place] [phone] Discharge Disposition: Home or Self Care 01/24/2024 9:55 AM EST - 01/24/2024 11:59 PM EST [facility] [address] [phone] Encounter for screening mammogram for malignant neoplasm of breast Discharge Disposition: Home or Self Care from Last 3 Months Medical History Medical History Date Comments Anxiety DX:Anxiety Obesity DX:Obesity Family History Medical History Relation Name Comments Glaucoma Mother Blindness Neg Hx Cataracts Neg Hx Macular degeneration Neg Hx Strabismus Neg Hx Relation Name Status Comments Mother Social History Tobacco Use Types Packs/Day Years Used Date Smoking Tobacco: Every Day Cigarettes Alcohol Use Standard Drinks/Week Comments Not Asked 0 (1 standard drink = 0.6 oz pur e alcohol) Comments No Sex and Gender Information Value Date Recorded Sex Assigned at Female 01/08/2024 12:51 PM EST Legal Sex Female 3:11 PM EST Gender Identity Choose not to disclose 12:51 PM EST Sexual Orientation Choose not to disclose 2023 12:51 PM EST Obstetrics History Para Term AB IAB SAB Ectopic Multiple Livin g Live Births 1 Last Filed Vital Signs Vital Sign Reading Time Taken Comments Blood Pressure 127/78 01/25/2024 8:12 AM EST Pulse 82 01/25/2024 8:12 AM EST Temperature 36.5 ??C (97.7 ??F) 01/25/2024 8:12 AM ES T Respiratory Rate 18 01/25/2024 8:12 AM EST Oxygen Saturation 98% 01/25/2024 8:12 AM EST Inhaled Oxygen Concentration - - Weight 122 kg (268 lb) 01/25/2024 8:12 AM EST Height 170.2 cm (5' 7 ) 01/25/2024 8:12 AM EST Body Mass Index 41.97 01/25/2024 8:12 AM EST Plan of Treatment Health Maintenance Due Date Last Done Comments Hepatitis A Vaccines (1 of 2 - Risk 2-dose series) 2001 Cervical Cancer Screening: Pap Smear 2003 Pneumococcal Vaccine: Pediatrics (0 to 5 Years) and At-Risk Patients (6 to 64 Years) (2 of 2 - PCV) 04/25/2008 04/26/2007 Hepatitis B Vaccines (3 of 3 - 19+ 3-dose series) 09/11/2019 04/10/2019, 03/13/2019 HIV Screening 01/18/2022 Hepatitis C Screening 01/18/2022 Medicare Annual Wellness Visit 01/18/2022 Social Influencers of Health Screening 01/18/2022 Depression Screening 06/23/2023 06/22/2022 COVID-19 Vaccine ( - season) 2023 07/22/2020 Influenza Vaccine (#1) 2023 , 11/22/2017, 11/06/2016, Additional history exists Breast Cancer Screening 01/23/2026 01/24/2024, 07/13 Cholesterol Screening (Lipid Panel) 08/17/2027 08/16/2022 DTaP,Tdap,and Td Vaccines (4 - Td or Tdap) 02/26/2028 02/25/2018, 04/26/2007, 05/29/2006 HIB Vaccines Aged Out No longer eligi ble based on patient's age to complete this topic HPV Vaccines Aged Out No longer eligi ble based on patient's age to complete this topic IPV Vaccines Aged Out No longer eligi ble based on patient's age to complete this topic MMR Vaccines Aged Out No longer eligi ble based on patient's age to complete this topic Meningococcal ACWY Vaccine Aged Out N o longer eligible based on patient's age to complete this topic Meningococcal B Vacine Aged Out No lo nger eligible based on patient's age to complete this topic RSV Immunization Patients Under 20 months Aged Out No longer eligible based on patient's age to complete this topic Varicella Vaccines Aged Out No longer eligible based on patient's age to complete this topic Procedures Procedure Name Priority Date/Time Associated Diagnosis Comments CHAVEZ URINE CULTURE TUBE STAT 01/25/2024 10:17 AM EST URINALYSIS WITH REFLEX MICROSCOPIC AND CULTURE STAT 01/25/2024 10:17 AM EST URINALYSIS WITH REFLEX MICROSCOPIC AND CULTURE STAT 01/25/2024 10:17 AM EST CULTURE URINE STAT 01/25/2024 10:17 AM EST CBC WITH AUTO DIFFERENTIAL STAT 01/25/2024 10:13 AM EST COMPREHENSIVE METABOLIC PANEL STAT 01/25/2024 10:13 AM EST CBC AND DIFFERENTIAL STAT 01/25/2024 10:13 AM EST MG MAMMO DIGITAL SCREENING W DARCI BILAT Routine 01/24/2024 10:10 AM EST Encounter for screening mammogram for malignant neoplasm of breast from Last 3 Months Results * (ABNORMAL) Urinalysis with reflex microscopic and culture (01/25/2024 10:17 AM EST) Specific [place] Urine 1.017 1.003 - 1.030 LAB URINALYSIS - AUTOMATED METHOD 01/25/2024 10:43 AM EST [facility] pH, Urine 6.5 5.0 - 8.0 pH LAB URINALYSIS - AUTOMATED METHOD 01/25/2024 10:43 AM [facility] Leukocytes, Urine Moderate(A) Negative LAB URINALYSIS - AUTOMATED METHOD 01/25/2024 10:43 AM [facility] Nitrite, Urine Negative Negative LAB URINALYSIS - AUTOMATED METHOD 01/25/2024 10:43 AM [facility] Protein, Urine Negative <=Trace mg/dL LAB URINALYSIS - AUTOMATED METHOD 01/25/2024 10:43 AM [facility] Glucose, Urine Negative Negative mg/dL LAB URINALYSIS - AUTOMATED METHOD 01/25/2024 10:43 AM [facility] Ketones, Urine Negative Negative mg/dL LAB URINALYSIS - AUTOMATED METHOD 01/25/2024 10:43 AM [facility] Urobilinogen , Urine 0.2 0.2 - 1.0 mg/dL LAB URINALYSIS - AUTOMATED METHOD 01/25/2024 10:43 AM [facility] Bilirubin, Urine Negative Negative LAB URINALYSIS - AUTOMATED METHOD 01/25/2024 10:43 AM [facility] Blood, Urine Moderate(A) Negative LAB URINALYSIS - AUTOMATED METHOD 01/25/2024 10:43 AM [facility] RBC, Urine 17.0(H) 0 - 4 /HPF LAB URINALYSIS - AUTOMATED METHOD 01/25/2024 10:43 AM [facility] WBC, Urine 30.2(H) 0 - 4 /HPF LAB URINALYSIS - AUTOMATED METHOD 01/25/2024 10:43 AM [facility] Squamous Epithelial, Urine >100(H) 0 - 60 /LPF LAB URINALYSIS - AUTOMATED METHOD 01/25/2024 10:43 AM [facility] Bacteria, Urine Many(A) Negative /HPF LAB URINALYSIS - AUTOMATED METHOD 01/25/2024 10:43 AM [facility] Hyaline Casts, Urine 5.0(H) 0 - 3 /LPF LAB URINALYSIS - AUTOMATED METHOD 01/25/2024 10:43 AM EST [facility] Urine Urine specimen obtained by clean catch procedure / Unknown Non-blood Collection / Unknown 01/25/2024 10:17 AM EST 01/25/2024 10:32 AM EST Kevin TORO LAB URINE ORDERABLES Michelle l Result Performing Organization Address City/[facility]/ZIP Co de Phone Number [facility] [address] [place] [address], [place] [phone] * Chavez urine culture tube (01/25/2024 10:17 AM EST) Extra Tube Hold for add-ons. 01/25/2024 12:02 PM EST [facility] Comment:Auto resulted. Urine Urine specimen obtained by clean catch procedure / Unknown Non-blood Collection / Unknown 01/25/2024 10:17 AM EST 01/25/2024 10:32 AM EST Kevin TORO LAB URINE ORDERABLES Michelle l Result Performing Organization Address [facility]/ZIP Co de Phone Number [facility] [address] [place] [address], [place] [phone] * Culture urine (01/25/2024 10:17 AM EST) Culture, Urine 10,000-49,000 CFU/mL Mixed urogenital lenore, no uropathogens present. Suggest repeat specimen if clinically indicated. 01/26/2024 11:02 AM EST [facility] Urine Urine specimen obtained by clean catch procedure / Unknown Non-blood Collection / Unknown 01/25/2024 10:17 AM EST 01/25/2024 10:43 AM EST eKvin TORO LAB MICROBIOLOGY - GENERA L ORDERABLES Final Result [facility] [address] [place] [address], * (ABNORMAL) CBC auto differential (01/25/2024 10:13 AM EST) [facility] Signature WBC 11.1(H) 4.8 - 10.8 K/mcL LAB HEMETOLOGY METHOD 01/25/2024 10:39 AM [facility] RBC 4.90 3.80 - 5.50 M/mcL LAB HEMETOLOGY METHOD 01/25/2024 10:39 AM [facility] Hemoglobin 13.4 12.0 - 18.0 g/dL LAB HEMETOLOGY METHOD 01/25/2024 10:39 AM [facility] Hematocrit 42.8 36.0 - 48.0 % LAB HEMETOLOGY METHOD 01/25/2024 10:39 AM [facility] MCV 87.2 79.0 - 98.0 FL LAB HEMETOLOGY METHOD 01/25/2024 10:39 AM [facility] MCH 27.3 27.0 - 32.0 pcg LAB HEMETOLOGY METHOD 01/25/2024 10:39 AM [facility] MCHC 31.3(L) 32.0 - 37.0 g/dL LAB HEMETOLOGY METHOD 01/25/2024 10:39 AM [facility] RDW 14.4 11.0 - 15.0 % LAB HEMETOLOGY METHOD 01/25/2024 10:39 AM [facility] Platelets 280 130 - 400 K/mcL LAB HEMETOLOGY METHOD 01/25/2024 10:39 AM [facility] MPV 12.2(H) 7.0 - 11.0 FL LAB HEMETOLOGY METHOD 01/25/2024 10:39 AM [facility] NRBC 0.0 <1.0 % LAB HEMETOLOGY METHOD 01/25/2024 10:39 AM [facility] NRBC Absolute 0.00 <0.10 K/mcL LAB HEMETOLOGY METHOD 01/25/2024 10:39 AM [facility] Neutrophils Relative 79.3 % LAB HEMETOLOGY METHOD 01/25/2024 10:39 AM [facility] Lymphocytes Relative 14.2 % LAB HEMETOLOGY METHOD 01/25/2024 10:39 AM [facility] Monocytes Relative 5.1 % LAB HEMETOLOGY METHOD 01/25/2024 10:39 AM [facility] Eosinophils Relative 0.7 % LAB HEMETOLOGY METHOD 01/25/2024 10:39 AM [facility] Basophils Relative 0.4 % LAB HEMETOLOGY METHOD 01/25/2024 10:39 AM [facility] Immature Granulocytes Relative 0.3 % LAB HEMETOLOGY METHOD 01/25/2024 10:39 AM [facility] Neutrophils Absolute 8.79(H) 1.50 - 7.00 K/mcL LAB HEMETOLOGY METHOD 01/25/2024 10:39 AM [facility] Lymphocytes Absolute 1.57 1.00 - 5.00 K/mcL LAB HEMETOLOGY METHOD 01/25/2024 10:39 AM [facility] Monocytes Absolute 0.56 0.20 - 1.00 K/mcL LAB HEMETOLOGY METHOD 01/25/2024 10:39 AM [facility] Eosinophils Absolute 0.08 0.00 - 0.50 K/mcL LAB HEMETOLOGY METHOD 01/25/2024 10:39 AM [facility] Basophils Absolute 0.04 0.00 - 0.20 K/mcL LAB HEMETOLOGY METHOD 01/25/2024 10:39 AM [facility] Immature Granulocytes Absolute 0.03 0.00 - 0.03 K/mcL LAB HEMETOLOGY METHOD 01/25/2024 10:39 AM [facility] Blood Venous blood specimen / Unknown Venipuncture / Unknown 01/25/2024 10:13 AM EST 01/25/2024 10:32 AM EST us Kevin TORO LAB BLOOD ORDERABLES Michelle rivas Result [facility] [address] [place] [address], [place] [phone] * (ABNORMAL) Comprehensive metabolic panel (01/25/2024 10:13 AM EST) Sodium 140 133 - 145 mmol/L LAB CHEMISTRY METHOD 01/25/2024 11:00 AM [facility] Potassium 4.2 3.5 - 5.5 mmol/L LAB CHEMISTRY METHOD 01/25/2024 11:00 AM [facility] Chloride 108 96 - 110 mmol/L LAB CHEMISTRY METHOD 01/25/2024 11:00 AM [facility] CO2 27 21 - 32 mmol/L LAB CHEMISTRY METHOD 01/25/2024 11:00 AM [facility] Anion Gap 5 3 - 11 LAB CHEMISTRY METHOD 01/25/2024 11:00 AM [facility] Glucose 140(H) 70 - 100 mg/dL LAB CHEMISTRY METHOD 01/25/2024 11:00 AM [facility] BUN 10 5 - 25 mg/dL LAB CHEMISTRY METHOD 01/25/2024 11:00 AM [facility] Creatinine 0.88 0.50 - 1.30 mg/dL LAB CHEMISTRY METHOD 01/25/2024 11:00 AM [facility] eGFR 85 >=60 mL/min/1. 73m2 LAB CHEMISTRY METHOD 01/25/2024 11:00 AM [facility] Comment: For non-binary individuals or unknown sex, the equation for female sex is used to calculate the estimated glomerular filtration rate (eGFR). Calculation based on the??Chronic Kidney Disease Epidemiology Collaboration (CKD-EPI) equation refit??without adjustment for race. BUN/Creatinine Ratio 11.4 LAB CHEMISTRY METHOD 01/25/2024 11:00 AM [facility] Calcium 9.6 8.5 - 10.5 mg/dL LAB CHEMISTRY METHOD 01/25/2024 11:00 AM [facility] AST (SGOT) 50(H) 10 - 42 unit/L LAB CHEMISTRY METHOD 01/25/2024 11:00 AM [facility] ALT (SGPT) 45 10 - 60 unit/L LAB CHEMISTRY METHOD 01/25/2024 11:00 AM [facility] Alkaline Phosphatase 94 42 - 121 unit/L LAB CHEMISTRY METHOD 01/25/2024 11:00 AM [facility] Total Protein 7.0 6.0 - 8.0 g/dL LAB CHEMISTRY METHOD 01/25/2024 11:00 AM [facility] Albumin 3.6 3.2 - 5.0 g/dL LAB CHEMISTRY METHOD 01/25/2024 11:00 AM [facility] Total Bilirubin 0.6 0.0 - 1.4 mg/dL LAB CHEMISTRY METHOD 01/25/2024 11:00 AM [facility] Blood Venous blood specimen / Unknown Venipuncture / Unknown 01/25/2024 10:13 AM EST 01/25/2024 10:32 AM EST us Kevin TORO LAB BLOOD ORDERABLES Michelle rivas Result [facility] [address] [place] [address], * MG Mammo Digital Screening w Darci bilat (01/24/2024 10:10 AM EST) Anatomical Region Laterality Modality Breast Bilateral Mammography 01/24/2024 10:5 6 AM EST Impressions 01/24/2024 10:58 AM EST No evidence of breast malignancy. BI-RADS CATEGORY: 1 - NEGATIVE RECOMMENDATION: Screening bilateral mammogram is recommended in 1 year. Mammo Location: [facility], [address] [place] [address], [id number], . -------- FINAL REPORT -------- Dictated By: Elly Lay Dictated Date: 01/24/2024 10:56 ET Assigned Physician: Elly aLy Reviewed and Electronically Signed By: Elly Lay Signed Date: 01/24/2024 10:58 ET Workstation ID: [id number] Transcribed By: Self Edit Transcribed Date: 01/24/2024 10:56 ET Narrative 01/24/2024 10:58 AM EST CLINICAL: 43 years old, Female, routine annual exam. COMPARISON: 07/13/2022 ?? TECHNIQUE: Bilateral MLO and CC views were obtained digitally with 3-D mammogram (digital breast tomosynthesis). Computer-aided detection was utilized in evaluation of this exam (CAD). FINDINGS: There is no evidence of suspicious mass or architectural distortion. ??No worrisome calcifications are evident. ??There has been no significant change from prior exam(s). ?? BREAST DENSITY: B - There are scattered areas of fibroglandular density. Procedure Note Elly Lay MD - 01/24/2024 CLINICAL: 43 years old, Female, routine annual exam. COMPARISON: 07/13/2022 TECHNIQUE: Bilateral MLO and CC views were obtained digitally with 3-Dmammogram (digital breast tomosynthesis). Computer-aided detection wasutilized in evaluation of this exam (CAD). FINDINGS: There is no evidence of suspicious mass or architectural distortion. Noworrisome calcifications are evident. There has been no significantchange from prior exam(s). BREAST DENSITY: B - There are scattered areas of fibroglandular density. IMPRESSION: No evidence of breast malignancy. BI-RADS CATEGORY: 1 - NEGATIVE RECOMMENDATION: Screening bilateral mammogram is recommended in 1 year. Mammo Location: [facility] at [facility], [address] [place] [address], [id number], . -------- FINAL REPORT -------- Dictated By: Elly Lay Dictated Date: 01/24/2024 10:56 ET Assigned Physician: Elly Lay Reviewed and Electronically Signed By: Elly Lay Signed Date: 01/24/2024 10:58 ET Workstation ID: [id number] Transcribed By: Self Edit Transcribed Date: 01/24/2024 10:56 ET us Nash Villarreal MD IMG BI PROCEDURES Final R esult from Last 3 Months Insurance [facility] Member Subscriber Plan / Payer (Ef fective 2018-Present) Name:Ramirez Monisha Relation to Subscriber:Spouse Name:RAMIREZ,MONISHA Date of :1982 Address: [address] [place] [id number] Payer ID:[id number] Group ID:[id number] Type:Not on file Address: [address] [place] [id number] [employer] MEDICARE Member Subscriber Plan / Payer (Ef fective 2024-Present) Name:RamirezMonisha Relation to Subscriber:Self Name:Ramirez, Monisha Payer ID:[id number] Group ID:Not on file Type:Not on file Address: [address] [place] [id number] Care Teams Electrical Foreman Relationship Specialty Start Date End Date Nash Villarreal MD [address] [place] [id number] PCP - General Internal Medicine 01/08/24
== END 2024-04-23 15:33 | disposition home or self-care (01) ==
LOC: HO.CHCLDS 15:32
PROVIDERS: Visit Provider Internal Medicine
DX: Z00.00 Encounter for general adult medical examination without abnormal findings (principal); R73.09 Other abnormal glucose; F25.8 Other schizoaffective disorders; R30.0 Dysuria; Z13.6 Encounter for screening for cardiovascular disorders
CPT/HCPCS: 36415; 80053; 80061; 81001; 84443; 85025; 87086; 87088; 87186

== ENCOUNTER 2024-05-13 12:57 | Outpatient (REF) | payer OTHER, SELFPAY ==
[2024-05-13 14:20] LABS: Appearance Urine Turbid; Color Urine Yellow; Glucose Urine UA Negative (Negative); Leukocyte Esterase Urine Large (3+) (Negative); Nitrite Urine Negative (Negative); PH 5.5 (5.0-9.0); Specific Gravity - Urine 1.015 (1.005-1.025); UMIC TRIGGER UACC YES; Urine Blood Moderate (2+) (Negative); Urine Ketones Trace mg/dL (Negative); Urine Protein Trace mg/dL (Neg-Trace)
[2024-05-13 14:27] LABS: Bacteria Urine 2+ (None Seen); Hyaline Casts Urine 0-2 /LPF (0-2); UACC Culture Trigger YES; WBC Urine >50 /HPF (0-5)
== END 2024-05-13 12:58 | disposition home or self-care (01) ==
LOC: HO.CHCLDS 12:57
PROVIDERS: Visit Provider Internal Medicine
DX: R10.2 Pelvic and perineal pain (principal)
CPT/HCPCS: 81001; 87086; 87088; 87186